=== PATIENT | male | born 1965 | race Caucasian/White ===

== ENCOUNTER 2017-11-05 21:05 | Observation (INO) | payer OTHER ==
[~2017-11-05] VITALS: Ht 175.3 cm; Wt 105.8 kg
[2017-11-05 22:00] LABS: HEMATOCRIT 44.7 % (38.0-50.0); HEMOGLOBIN 15.6 G/DL (12.5-16.6); MCH 30.8 PG (29.0-34.0); MCHC 34.9 G/DL (30.0-36.0); MCV 88.2 FL (86-99); PLATELET COUNT 221 K/uL (156-360); RBC DIS.WIDTH-CV 12.7 % (11.8-14.6); RED BLOOD COUNT 5.07 M/uL (4.00-5.50)
[2017-11-05 22:12] LABS: CHLORIDE 107 mEq/L (99-109); POTASSIUM 4.2 mEq/L (3.7-5.4); SODIUM 141 mEq/L (136-147)
[2017-11-05 22:14] LABS: GLUCOSE 133 mg/dL (70-99)
[2017-11-05 22:18] LABS: CREATININE 1.1 mg/dL (0.6-1.3); GFR ESTIMATE (CALCULATED) > 59 mL/min/ (58.99-99999)
[2017-11-05 22:19] LABS: UREA NITROGEN (BUN) 14 mg/dL (9-23)
[2017-11-05 22:25] LABS: TROP-I INTERPRETATION NEGATIVE; TROPONIN-I < 0.01 ng/mL (0.0-0.30)
[2017-11-06] MEDS ORDERED: AMLODIPINE BESYL5 MG PO ×2 (00:38→12:31)
[2017-11-06] MEDS ORDERED: PREDNISONE10 MG PO (00:39)
[2017-11-06] MEDS ORDERED: ZOLPIDEM TARTRA10 MG PO (00:40)
[2017-11-06] MEDS ORDERED: LO-DOSE ASPIRIN81 M2 PO (00:40)
[2017-11-06] MEDS ORDERED: MAGNESIUM OXID500 MG PO (00:42)
[2017-11-06] MEDS ORDERED: VITAMIN D2000 UNIT PO (00:43)
[2017-11-06] MEDS ORDERED: VITAMIN C1000 MG PO (00:43)
[2017-11-06 00:45] LABS: D-DIMER ELISA < 150.00 ng/mLDDU (<230)
[2017-11-06 01:09] VITALS: BP 158/92
[2017-11-06 02:09] LABS: HDL CHOLESTEROL 43 MG/DL (Desirable>=40); LDL CHOLESTEROL 89 mg/dL (Desirable<100); NON-HDL CHOLESTEROL 130 mg/dL (Desirable<160); TOTAL CHOLESTEROL 173 mg/dL (Desirable<200); TRIGLYCERIDES 205 MG/DL (Normal: <150)
[2017-11-06 03:54] VITALS: BP 147/90
[2017-11-06 06:45] LABS: TROP-I INTERPRETATION NEGATIVE; TROPONIN-I < 0.01 ng/mL (0.0-0.30)
[2017-11-06 07:55] VITALS: BP 142/91
[2017-11-06 09:38] LABS: HEMOGLOBIN A1c (GLYCOHEMOGLOB) 4.8 % (Below 5.7)
[2017-11-06 11:00] LABS: TROP-I INTERPRETATION NEGATIVE; TROPONIN-I < 0.01 ng/mL (0.0-0.30)
[2017-11-06 12:26] VITALS: BP 165/93
[2017-11-06] MEDS ORDERED: LOPRESSOR25 MG PO (12:31)
== END 2017-11-06 14:32 | disposition home or self-care (01) ==
LOC: EME 21:05 → EDOF 11-06 00:05 → 5WEST 11-06 00:05 → ENRESERV 11-06 00:06 → 5WEST 11-06 00:55
PROVIDERS: Physician Assistant
DX: I16.0 Hypertensive urgency (principal); I10 Essential (primary) hypertension; K21.9 Gastro-esophageal reflux disease without esophagitis; G47.30 Sleep apnea, unspecified; Z87.891 Personal history of nicotine dependence; Z79.82 Long term (current) use of aspirin; Z79.52 Long term (current) use of systemic steroids
CPT/HCPCS: 70450; 71046; 80048; 80061; 83036; 84484; 85027; 85379; 93005; 93880; 99281; 99285; G0378; J1644